=== PATIENT | female | born 1970 | race Caucasian/White ===

== ENCOUNTER 2017-01-03 09:09 | Day surgery (SDC) | payer OTHER ==
[~2017-01-03] VITALS: Ht 154.9 cm; Wt 89.1 kg
[~2017-01-03 09:09] MED LIST: ASPI-1093 PO; CeFAZolin 1 GM/DEXTROSE 50 ML IV ONE; INSLAN SQ; INSU100V SQ; METF500T4 PO; PHEN37.591 PO; TRIA1CAP6 PO
[2017-01-03] MEDS ORDERED: RINGERS SOLUTION,LACTATED 1,000 ML IV ONE ×2 (09:30→09:56)
[2017-01-03 10:07] LABS: GLUCOSE,POINT OF CARE 154 MG/DL (70-110)
[2017-01-03] MEDS ORDERED: LIDOCAINE HCL/PF 1% 30 ML VIAL ONE (11:56)
[2017-01-03 12:11] VITALS: BP 140/83
[2017-01-03] MEDS ORDERED: MIDAZOLAM HCL 2 MG/2 ML VIAL ONE (12:19)
[2017-01-03] MEDS ORDERED: FentaNYL CITRATE-PF 100 MCG/2 ML VIAL ONE (12:19)
[2017-01-03] MEDS ORDERED: LIDOCAINE HCL/PF 1% 30 ML VIAL INJ ONE (12:30)
[2017-01-03] MEDS ORDERED: FentaNYL CITRATE-PF 100 MCG/2 ML VIAL IVP ONE (12:30)
[2017-01-03] MEDS ORDERED: MIDAZOLAM HCL 2 MG/2 ML VIAL IVP ONE (12:30)
[2017-01-03 12:38] VITALS: BP 102/72
== END 2017-01-03 13:55 | disposition home or self-care (01) ==
LOC: SDS 09:09
PROVIDERS: ATTEND Orthopaedic Surgery
DX: M54.12 Radiculopathy, cervical region (principal); E11.9 Type 2 diabetes mellitus without complications; D64.9 Anemia, unspecified; G43.909 Migraine, unspecified, not intractable, without status migrainosus; M54.9 Dorsalgia, unspecified; Z79.4 Long term (current) use of insulin; Z72.89 Other problems related to lifestyle; Z98.890 Other specified postprocedural states; Z90.49 Acquired absence of other specified parts of digestive tract
CPT/HCPCS: 64490; 82962; 84703; J1040; J2250; J3010; J3490; J7120